=== PATIENT | female | born 1945 | race Asian ===

== ENCOUNTER 2022-10-22 17:19 | Emergency (ER) | payer MEDICARE ==
[~2022-10-22] VITALS: Ht 149.9 cm; Wt 54.9 kg
[2022-10-22 17:44] VITALS: BP 160/90
[2022-10-22] MEDS ORDERED: PRED50TA PO (18:07)
--- NOTE | 2022-10-22 18:15 | NUR ---
FLU AND COVID SWABS DONE AND SENT TO LAB
--- NOTE | 2022-10-22 18:19 | NUR ---
Patient discharged to home in stable condition. Written and verbal after care instructions given. Patient verbalizes understanding of instruction.
== END 2022-10-22 18:22 | disposition home or self-care (01) ==
LOC: ER 17:23
DX: J06.9 Acute upper respiratory infection, unspecified (principal); B97.89 Other viral agents as the cause of diseases classified elsewhere; Z20.822 Contact with and (suspected) exposure to COVID-19; I10 Essential (primary) hypertension
CPT/HCPCS: C9803